=== PATIENT | female | born 1995 | race Caucasian/White ===

== ENCOUNTER 2018-08-14 10:19 | Outpatient (REF) | payer OTHER, SELFPAY | END 2018-08-14 10:39 | LOC: NCHCN 10:19 | PROVIDERS: Visit Provider Nurse Practitioner | DX: R30.0 Dysuria (principal) | CPT/HCPCS: 87077; 87086; 87186 ==

== ENCOUNTER 2018-09-10 12:58 | Outpatient (REF) | payer OTHER, SELFPAY ==
--- NOTE | 2018-09-10 09:30 | PAPFT_PTH ---
PATIENT: Leela West LOC: [facility] U#:[id number] AGE/SX: 23/F ROOM: RE09/10/[address]: Sameera Hays : 1995 BED: DIS: 09/10/2018 SPEC #: [id number] RECD: 09/10/18 13:17 STATUS: NINA REQ #: [id number] JESSICA: 09/10/18 09:[address]: Sameera Hays DEPT: [facility] Cytology RECD BY: Kristal Rousseau ENTERED: 09/10/18 13:17 SP TYPE: PAPFT OT DR: Unknown,Unknown Tissues: 1 - CX/ENDOCX FOR PAP SMEARS Procedures: PAP THIN PREP/UVM Screening Comments: [id number] (CHLAMYDIA/GC)
[2018-09-11 13:57] LABS: Chlamydia Result Negative; GC Result Negative; Specimen Description SEE COMMENTS
== END 2018-09-10 13:18 ==
LOC: NCHCN 12:58
PROVIDERS: Visit Provider Nurse Practitioner
DX: Z00.00 Encounter for general adult medical examination without abnormal findings (principal); Z11.3 Encounter for screening for infections with a predominantly sexual mode of transmission; Z12.4 Encounter for screening for malignant neoplasm of cervix; Z01.419 Encounter for gynecological examination (general) (routine) without abnormal findings
CPT/HCPCS: 87491; 87591; 88142

== ENCOUNTER 2018-09-24 02:28 | Emergency (ER) | payer OTHER, SELFPAY ==
[2018-09-24 02:30] VITALS: BP 130/72; PULSE 124; RESP 18; TEMP 36.6; O2SAT 98
--- NOTE | 2018-09-24 02:54 | ED.GENADUL_ITS ---
Discharge Plan Disposition Patient Disposition: HOME Discharge Details Chief Complaint: Allergic Clinical Impression: Acute allergic conjunctivitis of right eye, Cardiac murmur Primary Care Provider: Unknown,Unknown ED Provider: Marc Chowdary Home Meds and New Rx's Prescriptions: New prednisone 20 mg tablet 40 mg PO DAILY 5 Days Qty: 8 RF: 0 Continue acetaminophen [Tylenol Extra Strength] 500 MG tablet 500 mg PO PRN RF: 0 omeprazole [Prilosec] 20 MG capsule,delayed release(DR/EC) 20 mg PO PRN RF: 0 ibuprofen [Ibuprofen IB] 200 MG tablet 200 mg PO PRN Qty: 2 RF: 0 norgestimate-ethinyl estradiol [Sprintec (28)] 1 EACH tablet 1 tab-cap PO DAILY Qty: 3 RF: 0 Discontinued fexofenadine-pseudoephedrine [Mimi-D 24 Hour] 180-240 mg Tablet Extended Release 24 Hr 1 tab PO DAILY RF: 0 Discharge Instructions Instructions: Allergies (ED), Conjunctivitis (ED) Additional Instructions: Please follow-up with your primary care physician and an alteration specialist ( [facility] -- ). Take prednisone as prescribed. Use Mimi [id number], dose according to label. Use antihistamine eyedrops, dose according to label. Return to the ER for any worsening or new concerning symptoms. Please be sure to discuss your murmur with your primary care physician. Additional diagnostic testing may be necessary if this is a new murmur. Referrals: Sameera Hays [ NON-[facility] STAFF PHYSICIAN] - Medical Decision Making 23-year-old female here with allergic conjunctivitis right eye with significant chemosis. Plan to treat with Benadryl and prednisone. Patient has been suffering from intermittent allergies of the past few months. Unclear allergen. I think at this point it would benefit her to see an medical doctor nuclear medicine. I have provided contact information for [facility]. Plan to continue on his own burst for 5 days total. I advised that she take Mimi and use antihistamine eyedrops. Was also noted to have a murmur on exam today. Unclear patient has a history of murmur. She states that no one has told her she had a murmur in the past. I will have her follow-up with her primary care physician and if no record of prior murmur she may need an echocardiogram [facility] General Mode of arrival: ambulatory . Date/Time Provider Initiated Documentation: 09/24/18 02:53 . Limitations to Documentation: no limitations . Information obtained by: patient . HPI Narrative: 23-year-old female with history of severe allergic reaction in the past, unknown allergen, continues to have intermittent allergies over the past few months, here with acute swelling and itching of her right eye tonight. Inflammation is severe. No modifiers. No associated pain. No visual changes. No other rash, swelling of throat, shortness of breath or wheeze. Related Data Home Medications Medication Instructions Recorded Confirmed acetaminophen [Tylenol Extra 500 mg PO PRN 06/06/15 09/24/18 Strength] ibuprofen [Ibuprofen IB] 200 mg PO PRN #2 06/06/15 09/24/18 omeprazole [Prilosec] 20 mg PO PRN 06/06/15 09/24/18 norgestimate-ethinyl estradiol 1 tab-cap PO DAILY #3 pack 06/10/18 09/24/18 [Sprintec (28)] prednisone 40 mg PO DAILY 5 Days #8 tab 09/24/18 Previous Rx's Medication Instructions Recorded norgestimate-ethinyl estradiol 1 tab-cap PO DAILY #3 pack 06/10/18 [Sprintec (28)] prednisone 40 mg PO DAILY 5 Days #8 tab 09/24/18 Allergies Allergy/AdvReac Type Severity Reaction Status Date / Time No Known Allergies Allergy Unverified 04/10/18 20:55 General Stated Complaint: Allergic DANIEL: 3 Review of Systems Review of Systems All systems reviewed & are unremarkable except as noted in HPI and below Exam Const General: cooperative and no acute distress HENWI Head: normocephalic Mouth: moist mucous membranes Throat: posterior oropharynx normal Eyes Conjunctivae: conjunctival abnormality right conjunctival chemosis Sclera: normal sclerae Cornea: corneas normal Pupils: PERRL EOM: EOM intact bilaterally Neck Neck: trachea midline and supple Resp Auscultation: clear to auscultation bilaterally, no rales, no rhonchi and no wheezes Cardio Rate: regular rate and not tachycardic Rhythm: regular rhythm Heart Sounds: murmur systolic II/ and at the right sternal border Skin General skin exam: no rashes or lesions noted Neuro General: alert, awake, oriented x3 and tone normal Extrem General: no edema Psych Appearance: grossly normal Mental Status: mental status grossly normal Affect: anxious affect Course Vital Signs Temperature 36.6 C 09/24/18 02:30 Pulse 124 H 09/24/18 02:30 Respiratory Rate 18 09/24/18 02:30 Blood Pressure 130/72 09/24/18 02:30 Pulse Oximetry 98 09/24/18 02:30 Temperature 36.6 C 09/24/18 02:30 Temperature Source Skin 09/24/18 02:30 Pulse 124 H 09/24/18 02:30 Respiratory Rate 18 09/24/18 02:30 Respiratory Effort 09/24/18 02:38 Respiratory Pattern Irregular 09/24/18 02:38 Blood Pressure 130/72 09/24/18 02:30 Blood Pressure Position Sitting 09/24/18 02:30 Pulse Oximetry 98 09/24/18 02:30 Oxygen Delivery Method Room Air 09/24/18 02:30 Oxygen Flow Rate 0 09/24/18 02:30
[2018-09-24] MEDS: diphenhydrAMINE 25 MG CAP 50 MG PO (03:11)
[2018-09-24] MEDS: predniSONE 20 MG TAB 40 MG PO (03:12)
== END 2018-09-24 03:14 | disposition home or self-care (01) ==
LOC: ER 03:20
PROVIDERS: Emergency Provider Student in an Organized Health Care Education/Training Program; PCP Nurse Practitioner
DX: H10.45 Other chronic allergic conjunctivitis (principal); R01.1 Cardiac murmur, unspecified
CPT/HCPCS: 99283; J7512

== ENCOUNTER 2018-10-29 00:21 | Outpatient (CLI) | payer OTHER, SELFPAY ==
--- NOTE | 2018-10-29 10:30 | MERGE_ITS ---
*[facility]* *[facility]* [address] [place] [address] Date of study: 10/29/2018 Transthoracic Echocardiography M-mode, complete 2D, complete spectral Doppler, and color Doppler *STUDY CONCLUSIONS* Impressions: Normal study. Summary: 1. Left ventricle: The cavity size was normal. Wall thickness was normal. Systolic function was normal. The estimated ejection fraction was 60-65%. Wall motion was normal; there were no regional wall motion abnormalities. 2. Right ventricle: The cavity size was normal. Wall thickness was normal. Systolic function was normal. *PATIENT PRESENTATION* Height: 162.6cm ((64in) ) S/D Pressure: 113 / 71 Weight: 53.5kg ((117.8lb) ) BSA: 1.55m^2 Test start time: 10:35 AM. Test stop time: 11:30 AM. PERFORMING Unknown PERFORMING [facility] BUFFET WAITER/WAITRESS RT Brenda (R)(CT), [facility] ORDERING Sameera Hays REFERRING Sameera Hays *PROCEDURE DATA* Procedure information: The patient was identified by two identifiers. This study was interpreted by [facility]. Pertinent images and digital data are archived for permanent storage and are available for subsequent review. No prior study was available for comparison. Study status: Routine. Transthoracic echocardiography. M-mode, complete 2D, complete spectral Doppler, and color Doppler. A Transthoracic Echocardiogram was performed. Scanning was performed from the parasternal, apical, subcostal, and suprasternal notch acoustic windows. Images were obtained using an [id number] cardiac ultrasound machine. Study completion: The patient tolerated the procedure well. History: PMH: Cardiac murmur. *CARDIAC ANATOMY* Left ventricle: The cavity size was normal. Wall thickness was normal. Systolic function was normal. The estimated ejection fraction was 60-65%. Wall motion was normal; there were no regional wall motion abnormalities. Diastolic parameters were normal. Aortic valve: Trileaflet; normal thickness leaflets. Mobility was not restricted. Doppler: Transvalvular velocity was within the normal range. There was no stenosis. There was no significant regurgitation. VTI ratio of LVOT to aortic valve: 0.97. Valve area (VTI): 2.8cm^2. Indexed valve area (VTI): 1.8cm^2/m^2. Peak velocity ratio of LVOT to aortic valve: 0.91. Valve area (Vmax): 2.6cm^2. Indexed valve area (Vmax): 1.7cm^2/m^2. Mean velocity ratio of LVOT to aortic valve: 0.93. Valve area (Vmean): 2.7cm^2. Indexed valve area (Vmean): 1.7cm^2/m^2. Mean gradient (S): 4mm Hg. Peak gradient (S): 6.7mm Hg. Aorta: Aortic root: The aortic root was normal in size. Ascending aorta: The ascending aorta was normal in size. Mitral valve: Structurally normal valve. Mobility was not restricted. Doppler: Transvalvular velocity was within the normal range. There was no evidence for stenosis. There was no significant regurgitation. Valve area by pressure half-time: 5.8cm^2. Indexed valve area by pressure half-time: 3.7cm^2/m^2. Peak gradient (D): 5.8mm Hg. Left atrium: The atrium was normal in size. Right ventricle: The cavity size was normal. Wall thickness was normal. Systolic function was normal. Pulmonic valve: Structurally normal valve. Doppler: Transvalvular velocity was within the normal range. There was no evidence for stenosis. There was no significant regurgitation. Peak gradient (S): 5mm Hg. Tricuspid valve: Structurally normal valve. Doppler: Transvalvular velocity was within the normal range. There was no evidence for stenosis. There was no significant regurgitation. Pulmonary artery: Systolic pressure could not be accurately estimated. Right atrium: The atrium was normal in size. Pericardium: There was no pericardial effusion. Systemic veins: Inferior vena cava: Well visualized. The vessel was patent and normal in size. The respirophasic diameter changes were in the normal range (greater than or equal to 50%). Baseline ECG: Tachycardia. Measurements Left ventricle Value Reference LV ID, ED, PLAX 4.4 cm 3.5 - 6.0 LV ID, ES, PLAX 3.0 cm 2.1 - 4.0 LV PW thickness, ED, PLAX 0.7 cm LV end-diastolic volume, 1-p A2C 79 ml LV ejection fraction, 1-p A2C 66 % LV end-diastolic volume, 1-p A4C 71 ml LV ejection fraction, 1-p A4C 53 % LV e', lateral 0.2 m/sec LV E/e', lateral 6 LV e', medial 0.136 m/sec LV E/e', medial 9 LV e', average 0.168 m/sec LV E/e', average 7 Ventricular septum Value Reference IVS thickness, ED, PLAX 0.6 cm LVOT Value Reference LVOT ID, A-P 1.9 cm LVOT area 2.9 cm^2 LVOT peak velocity, S 1.17 m/sec LVOT mean velocity, S 0.88 m/sec LVOT VTI, S 21.4 cm LVOT peak gradient, S 5.5 mm Hg LVOT mean gradient, S 3.4 mm Hg Stroke volume (SV), LVOT DP 61 ml Stroke index (SV/bsa), LVOT DP 39 ml/m^2 Aortic valve Value Reference Aortic valve peak velocity, S 1.3 m/sec Aortic valve mean velocity, S 0.95 m/sec Aortic valve VTI, S 22.0 cm Aortic mean gradient, S 4 mm Hg Aortic peak gradient, S 6.7 mm Hg VTI ratio, LVOT/AV 0.97 Aortic valve area, VTI 2.8 cm^2 Velocity ratio, peak, LVOT/AV 0.91 Aortic valve area, peak velocity 2.6 cm^2 Velocity ratio, mean, LVOT/AV 0.93 Aortic valve area, mean velocity 2.7 cm^2 Aortic valve area/bsa, mean velocity 1.7 cm^2/m^2 Aorta Value Reference Aortic root ID, ED 2.5 cm Ascending aorta ID, A-P, S 2.6 cm Left atrium Value Reference LA ID, A-P, ES 1.9 cm LA ID/bsa, A-P 1.3 cm/m^2 <=2.2 LA area, ES, A4C 12.5 cm^2 8.8 - 23.4 LA area, ES, A2C 14 cm^2 LA volume/bsa, ES, 1-p A4C 22 ml/m^2 LA volume, ES, 2-p 34 ml LA volume/bsa, ES, 2-p 22 ml/m^2 LA/aortic root ratio 0.76 Mitral valve Value Reference Mitral E-wave peak velocity 1.2 m/sec Mitral A-wave peak velocity 0.84 m/sec Mitral deceleration time (L) 131 ms 150 - 230 Mitral pressure half-time 38 ms Mitral peak gradient, D 5.8 mm Hg Mitral E/A ratio, peak 1.44 Mitral valve area, PHT, DP 5.8 cm^2 Pulmonary veins Value Reference Pulmonary vein peak velocity, S 0.65 m/sec Pulmonary vein peak velocity, D 0.74 m/sec Pulmonary vein velocity ratio, peak, 0.88 S/D Tricuspid valve Value Reference Tricuspid regurg peak velocity 2.7 m/sec Tricuspid peak RV-RA gradient 28.1 mm Hg Right atrium Value Reference RA area, ES, A4C 8.7 cm^2 8.3 - 19.5 Pulmonic valve Value Reference Pulmonic peak gradient, S 5 mm Hg Legend: (L) and (H) elisa values outside specified reference range. I have personally reviewed the images and have reviewed and edited the reported findings. Electronically signed by Shorty Malone 10/29/2018 12:54
== END 2018-10-29 00:41 ==
PROVIDERS: PCP Nurse Practitioner; Visit Provider Nurse Practitioner
DX: R01.1 Cardiac murmur, unspecified (principal)
CPT/HCPCS: 93306

== ENCOUNTER 2021-12-28 08:36 | Outpatient (REF) | payer OTHER, SELFPAY ==
--- NOTE | 2021-12-28 08:15 | PAPFT_PTH ---
PATIENT: Leela West LOC: [facility]#:[id number] AGE/SX: 26/F ROOM: RE12/28/[address]: Carlie Sifuentes : 1995 BED: DIS: 12/28/2021 SPEC #: [id number] RECD: 12/28/21 16:39 STATUS: NINA REDanette #: [id number] JESSICA: 12/28/21 08:[address]: Carlie Sifuentes DEPT: [facility] Cytology RECD BY: Kristal Rousseau ENTERED: 12/28/21 16:39 SP TYPE: PAPFT OTHR DR: Sameera Hays Tissues: 1 - CX/ENDOCX FOR PAP SMEARS Procedures: PAP THIN PREP/UVM Screening Comments: [id number] (CHLAMYDIA/GC)
[2021-12-29 18:15] LABS: Chlamydia Result Negative (Negative); GC Result Negative (Negative)
== END 2021-12-28 08:37 | disposition home or self-care (01) ==
LOC: NCHCN 08:36
PROVIDERS: PCP Nurse Practitioner; Visit Provider Nurse Practitioner Family
DX: Z12.4 Encounter for screening for malignant neoplasm of cervix (principal); Z11.3 Encounter for screening for infections with a predominantly sexual mode of transmission
CPT/HCPCS: 87491; 87591; 88142

== ENCOUNTER 2022-12-09 16:18 | Emergency (ER) | payer SELFPAY ==
[2022-12-09] VITALS (12 sets, daily range): BP systolic 99–119; BP diastolic 67–80; PULSE 108–132; RESP 13–22; TEMP 37.1–37.6; O2SAT 97–100
[2022-12-09] MEDS: Normal Saline 1,000 ML 1000 ML IV ×2 (17:15→19:23)
[2022-12-09 17:26] LABS: Abs Immature Grans 0.06 10^3/uL (0.0-0.06); Absolute Lymphocyte Count 1.07 10^3/uL (1.2-3.4); Basophils % 0.3; Eosinophils % 0.6; HCT 47.9 % (36.0-46.0); HGB 15.7 g/dL (11.2-15.7); Immature Grans % 0.3; Lymphocytes % 5.3; MCH 29.6 pg (27.0-33.0); MCHC 32.8 % (32.0-36.0); MCV 90 fL (80-95); MPV 10.9 fL (8.0-11.0); Monocytes % 5.4; Neutrophils % 88.1; Platelet Count 313 10^3/uL (130-400); RBC 5.31 10^6/uL (3.93-5.22); RDW-SD 39.5 fL; WBC 20.18 10^3/uL (4.4-10.8)
[2022-12-09 17:30] LABS: Absolute Basophil Count 0.06 10^3/uL (0.0-0.2); Absolute Eosinophil Count 0.12 10^3/uL (0.0-0.7); Absolute Monocyte Count 1.09 10^3/uL (0.1-0.8); Absolute Neutrophil Count 17.78 10^3/uL (1.2-6.7)
[2022-12-09 17:39] LABS: Bilirubin Small (Negative); Blood Small (Negative); Clarity Sl Cloudy (Clear); Glucose Negative (Negative); Ketones Negative (Negative); Leukocyte Esterase Negative (Negative); Nitrite Negative (Negative); Specific Gravity >= 1.030 (1.005-1.025); Urobilinogen 0.2 EU/dL (Up TO 0.2); pH 5.5 (5-8)
[2022-12-09 17:57] LABS: ALT 34 U/L (14-59); AST 26 U/L (15-37); Albumin 4.8 g/dL (3.4-5.0); Alkaline Phosphatase 75 U/L (46-116); Anion Gap 12.8 mmol/L (3-11); BUN 15 mg/dL (7-18); Bilirubin, Total 0.3 mg/dL (0.2-1.0); CO2 26.2 mmol/L (21.0-32.0); CREATININE 0.9 mg/dL (0.55-1.02); Calcium 9.5 mg/dL (8.5-10.1); Chloride 101 mmol/L (98-107); Estimated GFR 90.42 (mL/min/1.73m2); Glucose 95 mg/dL (74-106); Lipase 105 U/L (73-393); Magnesium 1.9 mg/dL (1.8-2.4); Potassium 3.1 mmol/L (3.5-5.1); Sodium 140 mmol/L (136-145); Total Protein 10.1 g/dL (6.4-8.2)
[2022-12-09 18:01] LABS: Bacteria Moderate HPF (Negative); C & S Indicated? No/Sq. Contamination; Crystals Negative HPF (Negative); Epithelial Cells Many HPF (Negative); Mucus Heavy (Negative); Other Cells Rare Renal (Negative); RBC Negative HPF (0-2)
[2022-12-09] MEDS: Potassium Chloride 20 MEQ TABCR 40 MEQ PO (19:14)
--- NOTE | 2022-12-09 20:14 | W.ED.GENAD ---
Discharge Plan Disposition Patient Disposition: Home Condition: Stable Discharge Details Clinical Impression: Nausea and vomiting Primary Care Provider: Carlie Sifuentes ED Provider: Jackson Naik Home Meds and New Rx's Prescriptions: Continued acetaminophen [Tylenol Extra Strength] 500 MG tablet 500 mg PO PRN omeprazole [Prilosec] 20 MG capsule,delayed release(DR/EC) 20 mg PO PRN ibuprofen [Ibuprofen IB] 200 MG tablet 200 mg PO PRN Qty: 2 norgestimate-ethinyl estradiol [Sprintec (28)] 1 EACH tablet 1 tab-cap PO DAILY Qty: 3 0RF Discharge Instructions Additional Instructions: Continue to take medication as needed and slowly advance your diet as tolerated. Please stay well-hydrated and if you have any significant worsening of symptoms or are unable to take any food or fluids please return to the emergency department for reassessment. Otherwise follow-up with your primary care provider if not improving in the next week Stand Alone Forms: Work Release Referrals: Carlie Sifuentes [Primary Care Provider] - Discharge Data Discharge Date/Time-TO BE ENTERED AT DEPARTURE: 12/09/22 20:33 Medical Decision Making Patient presenting to the emergency department for chief complaint of nausea vomiting. Patient stated symptoms started with abrupt onset around 2:00 she states it was mostly liquid with slightly bile taste to emesis and has been persistent with no ability to intake p.o. fluids. Denies fever. Does state that approximately 2 hours prior to getting symptoms she did eat some raw cookie dough that was made with duck eggs. Patient denies any diarrhea vaginal or urinary symptoms. Physical exam shows no surgical abdominal findings, soft abdomen with normal active bowel sounds, no peritoneal findings. Patient is tachycardic otherwise stable vital signs. We will plan on checking labs and giving patient fluids pending results. We will also give antiemetics. Review of labs shows a significant leukocytosis that I feel secondary to acute vomiting, potassium slightly low at 3.1, anion gap of 12.8, lipase is normal at 105 LFTs are also all normal. Urinalysis shows patient is not , high specific gravity but no signs of infection and source looks contaminated. Patient refused fluid testing but did consent to antigen testing which was negative. We will give patient additional IV fluids and p.o. potassium given that she is feeling better. Patient refuses repeat CBC due to wanting to recheck for significant leukocytosis and wanted to assess improvement. At this time I do not feel that patient needs CT imaging but return and follow-up precautions were discussed at time of discharge. After discussion of diagnosis and plan of care patient has no further needs, questions, or concerns and states clear understanding to return to the emergency department for any worsening symptoms. I suspect acute foodborne illness versus viral. This documentation was generated using [employer] dictation system, please disregard any oddities of phrase or misspellings. HPI General Mode of arrival: ambulatory. Date/Time Provider Initiated Documentation: 12/09/22 16:29. Limitations to Documentation: no limitations. Information obtained by: patient and RN notes reviewed. History of Present Illness 27 year old F presents to the emergency department with the chief complaint of Nausea vomiting, described as moderate and severe, with intensity rated at 4. Quality is described as aching, and is localized to the abdomen. Patient reports no radiation. Patient started experiencing this hour(s) (2.5) and it has been constant. No relieving factors improve symptom(s), Eating worsens symptoms . Patient notes no other symptoms.. Patient did receive the following treatments prior to arrival, none Related Data Home Medications Medication Instructions Recorded Confirmed acetaminophen 500 mg tablet 500 mg PO PRN 06/06/15 12/09/22 (Tylenol Extra Strength) ibuprofen 200 mg tablet (Ibuprofen 200 mg PO PRN ##2 06/06/15 12/09/22 IB) omeprazole 20 mg capsule,delayed 20 mg PO PRN 06/06/15 12/09/22 release (Prilosec) norgestimate 0.25 mg-ethinyl 1 tab-cap PO DAILY ##3 18 12/09/22 estradiol 35 mcg tablet (Sprintec (28)) Previous Rx's Medication Instructions Recorded norgestimate 0.25 mg-ethinyl 1 tab-cap PO DAILY ##3 06/10/18 estradiol 35 mcg tablet (Sprintec (28)) Allergies Allergy/AdvReac Type Severity Reaction Status Date / Time No Known Allergies Allergy Unverified 12/09/22 16:27 General Stated Complaint: Nausea/Vomit/Diar DANIEL: 3 Review of Systems Constitutional Constitutional: Denies chills, Denies fever(s) and Reports poor appetite Cardiovascular Cardiovascular: Denies chest pain and Denies dyspnea Respiratory Respiratory: Denies cough and Denies dyspnea Gastrointestinal Gastrointestinal: Reports as per HPI, Reports abdominal pain, Denies melena, Denies change in bowel habits, Denies constipation, Denies diarrhea, Reports nausea and Reports vomiting Genitourinary Genitourinary: Denies hematuria and Denies dysuria Integumentary/Breasts Skin/Breast: Denies rash PFSH All Active Problems Nausea and vomiting (Acute) Postnasal drip (Chronic) Hypertrophy of nasal turbinates (Chronic) Routine medical exam (Acute 02/10/14) Contraception (Acute 06/06/15) Acne (Acute 11/13/12) Family History Other Diabetes MGM, MGF Personal history of malignant neoplasm maternal-breast Myocardial infarction MGF Asthma maternal cousins Social History Smoking/Tobacco Use Status: Never Smoking risk assessment performed?: Yes Alcohol Intake: current Alcohol Intake frequency: holidays/special occasions only Drug use: Never Substance use type: does not use Do you feel safe in your relationship?: Yes Exam Const General: cooperative and anxious Orientation: alert, awake and oriented x3 Resp Effort & Inspection: normal respiratory effort and able to speak in complete sentences Auscultation: clear to auscultation bilaterally Cardio Rate: tachycardic Rhythm: regular rhythm Heart Sounds: S1 normal and S2 normal GI Palpation: soft, no hepatosplenomegaly, not firm, no guarding, no masses, no pulsatile masses, not rigid, no splenomegaly and nontender Auscultation: normal bowel sounds Back/Spine/Pelvis Back: no CVA tenderness Neuro General: patient alert, patient awake, patient oriented x3, gait normal and moves all extremities Course Vital Signs Vital signs: Vital Signs Temperature 37.6 C H 12/09/22 16:23 Pulse 132 H 12/09/22 16:23 Respiratory Rate 18 12/09/22 16:23 Blood Pressure 114/75 12/09/22 16:23 Pulse Oximetry 100 12/09/22 16:23 Temperature 37.1 C 12/09/22 19:16 Pulse 121 H 12/09/22 19:00 Respiratory Rate 18 12/09/22 19:00 Respiratory Effort Non-Labored 12/09/22 17:38 Blood Pressure 111/73 12/09/22 19:00 Blood Pressure Position Sitting 12/09/22 16:23 Pulse Oximetry 98 12/09/22 19:00 Oxygen Delivery Method Room Air 12/09/22 19:00 Oxygen Flow Rate 0 12/09/22 19:00 Pain Level 6 12/09/22 16:23 Lab/Test Results Lab/Test Results: Laboratory Tests Range/Units 12/09/22 12/09/22 12/09/22 17:02 17:15 17:15 WBC (4.4-10.8) 10^3/uL 20.18 H RBC (3.93-5.22) 10^6/uL 5.31 H Hgb (11.2-15.7) g/dL 15.7 Hct (36.0-46.0) % 47.9 H MCV (80-95) fL 90 MCH (27.0-33.0) pg 29.6 MCHC (32.0-36.0) % 32.8 RDW (11.7-14.6) % 12.0 Plt Count (130-400) 10^3/uL 313 MPV (8.0-11.0) fL 10.9 Immature Gran % 0.3 Neutrophils % 88.1 Lymphocytes % 5.3 Monocytes % 5.4 Eosinophils % 0.6 Basophils % 0.3 Nucleated RBC % (0.0-0.3) % 0.0 Absolute Neutrophils (1.2-6.7) 10^3/uL 17.78 H Absolute Lymphocytes (1.2-3.4) 10^3/uL 1.07 L Absolute Monocytes (0.1-0.8) 10^3/uL 1.09 H Absolute Eosinophils (0.0-0.7) 10^3/uL 0.12 Absolute Basophils (0.0-0.2) 10^3/uL 0.06 Sodium (136-145) mmol/L 140 Potassium (3.5-5.1) mmol/L 3.1 L Chloride (98-107) mmol/L 101 Carbon Dioxide (21.0-32.0) mmol/L 26.2 Anion Gap (3-11) mmol/L 12.8 H BUN (7-18) mg/dL 15 Creatinine (0.55-1.02) mg/dL 0.9 Est GFR (CKD-EPI 2020) (mL/min/1.73m2) 90.42 Glucose (74-106) mg/dL 95 Calcium (8.5-10.1) mg/dL 9.5 Magnesium (1.8-2.4) mg/dL 1.9 Total Bilirubin (0.2-1.0) mg/dL 0.3 AST (15-37) U/L 26 ALT (14-59) U/L 34 Alkaline Phosphatase (46-116) U/L 75 Total Protein (6.4-8.2) g/dL 10.1 H Albumin (3.4-5.0) g/dL 4.8 Lipase (73-393) U/L 105 Urine Color (Yellow) Yellow Urine Clarity (Clear) Sl Cloudy Urine pH (5-8) 5.5 Ur Specific [place] (1.005-1.025) >= 1.030 H Urine Protein (Negative) mg/dL 100 H Urine Ketones (Negative) mg/dL Negative Urine Blood (Negative) Small H Urine Nitrite (Negative) Negative Urine Bilirubin (Negative) Small H Urine Urobilinogen (Up TO 0.2) EU/dL 0.2 Ur Leukocyte Esterase (Negative) Negative Urine RBC (0-2) HPF Negative Urine WBC (0-5) HPF 5-10 Ur Epithelial Cells (Negative) HPF Many Urine Crystals (Negative) HPF Negative Urine Bacteria (Negative) HPF Moderate Urine Mucus (Negative) Heavy Urine Other (Negative) Rare Renal Ur Culture Indicated? No/Sq. Contamination Urine Glucose (Negative) mg/dL Negative POC- Test(urine) Negative
[2022-12-09] MEDS: Ondansetron O.D.T. 4 MG TABEF, 3 TABS/BTL PO (20:36)
== END 2022-12-09 20:33 | disposition home or self-care (01) ==
PROVIDERS: Emergency Provider Nurse Practitioner Family; PCP Nurse Practitioner Family
DX: R11.2 Nausea with vomiting, unspecified (principal); D72.829 Elevated white blood cell count, unspecified; Z20.822 Contact with and (suspected) exposure to COVID-19
CPT/HCPCS: 36415; 80053; 81025; 83690; 87637; 96361; 96365; 96375; 99284; 81003; 81015; 83735; 85025

== ENCOUNTER 2023-10-21 21:31 | Outpatient (CLI) | payer MEDICAID, SELFPAY ==
[2023-10-21 09:21] LABS: HCG Quant, Pregnancy 21 mIU/mL (1-3)
== END 2023-10-21 21:32 | disposition home or self-care (01) ==
LOC: LBO 21:32
PROVIDERS: PCP Nurse Practitioner Family; Visit Provider Obstetrics & Gynecology
DX: O20.9 Hemorrhage in early pregnancy, unspecified (principal)
CPT/HCPCS: 36415; 86850; 86900; 86901; 84702

== ENCOUNTER 2023-12-02 16:51 | Outpatient (CLI) | payer MEDICAID, SELFPAY | END 2023-12-02 16:52 | disposition home or self-care (01) | LOC: LBO 16:52 | PROVIDERS: PCP Nurse Practitioner Family; Visit Provider Obstetrics & Gynecology | DX: N92.6 Irregular menstruation, unspecified (principal) | CPT/HCPCS: 36415; 86850; 86900; 86901; 84702 ==

== ENCOUNTER 2024-01-03 02:37 | Outpatient (CLI) | payer MEDICAID, SELFPAY ==
[2024-01-03 14:56] LABS: Panorama Kit Sent via Fed Ex
[2024-01-03 15:03] LABS: Abs Immature Grans 0.06 10^3/uL (0.0-0.06); Absolute Basophil Count 0.05 10^3/uL (0.0-0.2); Absolute Lymphocyte Count 2.22 10^3/uL (1.2-3.4); Absolute Monocyte Count 0.54 10^3/uL (0.1-0.8); Absolute Neutrophil Count 7.07 10^3/uL (1.2-6.7); Basophils % 0.5; HGB 12.6 g/dL (11.2-15.7); Immature Grans % 0.6; Lymphocytes % 22.1; MCH 30.1 pg (27.0-33.0); MCHC 34.1 % (32.0-36.0); MCV 89 fL (80-95); MPV 10.5 fL (8.0-11.0); Monocytes % 5.4; Neutrophils % 70.4; Platelet Count 256 10^3/uL (130-400); RBC 4.18 10^6/uL (3.93-5.22); RDW 12.9 % (11.7-14.6); RDW-SD 41.6 fL; WBC 10.04 10^3/uL (4.4-10.8)
[2024-01-04 11:32] LABS: Hepatitis C Ab w Rflx HCV PCR Negative (Negative)
[2024-01-04 11:40] LABS: HIV-1/2 Ag & Ab Screen Negative (Negative)
[2024-01-06 09:48] LABS: Hepatitis B Surface Ag Negative (Negative)
[2024-01-06 09:54] LABS: Varicella IgG Antibody Positive (See Note)
[2024-01-06 10:09] LABS: HSV Type 1 Ab, IgG Positive (Negative); HSV Type 2 Ab, IgG Negative (Negative)
[2024-01-06 10:22] LABS: Rubella IgG Ab (UVM) Positive (See Note)
[2024-01-07 12:55] LABS: Syphilis IgG w/Reflex Nonreactive (Nonreactive)
[2024-01-13 14:05] LABS: Result Summary NEGATIVE; Specimen WB Whole Blood
== END 2024-01-03 02:38 | disposition home or self-care (01) ==
LOC: LBO 02:37
PROVIDERS: PCP Nurse Practitioner Family; Visit Provider Advanced Practice Midwife
DX: Z34.91 Encounter for supervision of normal pregnancy, unspecified, first trimester (principal); Z86.19 Personal history of other infectious and parasitic diseases
CPT/HCPCS: 36415; 81220; 81222; 86787; 86803; 86850; 86900; 86901; 87340; 87389; 85025; 86695; 86696; 86762; 86780

== ENCOUNTER 2024-01-03 14:23 | Outpatient (REF) | payer MEDICAID, SELFPAY | END 2024-01-03 14:24 | disposition home or self-care (01) | LOC: LBN 14:23 | PROVIDERS: PCP Nurse Practitioner Family; Visit Provider Advanced Practice Midwife | DX: Z34.91 Encounter for supervision of normal pregnancy, unspecified, first trimester (principal); Z3A.11 11 weeks gestation of pregnancy; R82.998 Other abnormal findings in urine | CPT/HCPCS: 87086 ==

== ENCOUNTER 2024-01-31 11:12 | Outpatient (REF) | payer MEDICAID, SELFPAY ==
[2024-02-01 14:18] LABS: Chlamydia Result Negative (Negative); GC Result Negative (Negative)
== END 2024-01-31 11:13 | disposition home or self-care (01) ==
LOC: LBN 11:12
PROVIDERS: PCP Nurse Practitioner Family; Visit Provider Obstetrics & Gynecology
DX: Z34.92 Encounter for supervision of normal pregnancy, unspecified, second trimester (principal); Z11.3 Encounter for screening for infections with a predominantly sexual mode of transmission; Z3A.15 15 weeks gestation of pregnancy
CPT/HCPCS: 87491; 87591

== ENCOUNTER → 2024-02-27 04:03 | Outpatient (CLI) | payer MEDICAID, SELFPAY ==
--- NOTE | 2024-02-27 08:00 | DI.US_ITS ---
Exam(s) US OB 2-3 TRIMESTER EXAM: US OB 2-3 TRIMESTER CLINICAL HISTORY: anatomy scan,z34.90. TECHNIQUE: Transabdominal obstetrical ultrasound performed. COMPARISON: US POCUS EXAM from 12/20/2023 FINDINGS: Number of fetuses: One. position: Variable Placental grade: 1 Placental location: Anterior, low lying. The tip of the placenta measures 2.5 cm from the internal o s. BIOMETRIC DATA: BPD: 44mm = 19+ 2 weeks HC: 163mm = 19+ 0 weeks AC: 133mm = 18+ 6 weeks FL: 28mm = 18+ 4 weeks Cisterna Magna: 4.2 mm Cerebellum: 1.9 cm EFW: 255 grms 39% Composite Age: 19+ 0 weeks EDC by US: 23 July 2024 Heart Rate: 165BPM Amniotic fluid : Amount of fluid is within normal limits. ANATOMICAL SURVEY: Four-chambered heart: Unremarkable. LVOT: Unremarkable. RVOT: Not seen Left-sided stomach: Unremarkable. urinary bladder: Unremarkable. Bilateral kidneys: Unremarkable. Three-vessel cord: Unremarkable. Cord insertion: Unremarkable. Posterior fossa:Unremarkable. ventricles: Unremarkable. nose: Unremarkable. lips: Unremarkable. palate: Unremarkable. spine: Unremarkable. Two arms and two legs: Unremarkable. IMPRESSION: 1. Single live intrauterine with composite age of 19+ 0 weeks. 2. Normal anatomic survey. RVOT was not well seen. Patient scheduled to return 05 March 2024 for additional imaging. 3. Low lying placenta. DATA REPOSITORY:
== END ==
PROVIDERS: PCP Nurse Practitioner Family; Visit Provider Obstetrics & Gynecology
DX: Z34.92 Encounter for supervision of normal pregnancy, unspecified, second trimester (principal)
CPT/HCPCS: 76805

== ENCOUNTER → 2024-03-05 04:59 | Outpatient (CLI) | payer MEDICAID, SELFPAY ==
--- NOTE | 2024-03-05 | DI.US_ITS ---
Exam(s) US OB F/U FACIAL/LVOT/RVOT EXAM: US OB F/U FACIAL/LVOT/RVOT CLINICAL HISTORY: F/U RVOT AND FACE. TECHNIQUE: Transabdominal obstetrical ultrasound was performed. COMPARISON: Prior ANA MARÍA study of 02/27/2024 was reviewed. Apparently right ventricular outflow tract was not able to be adequately imaged at that time. FINDINGS: There is a single viable intrauterine gestation with cardiac activity identified-BPM not record ed but cardiac movement seen on the cine acquisitions. The fetus is presently in cephalic position . Amniotic fluid: There is a normal amount of amniotic fluid.. Placental location: The placenta is anterior grade 1,slightly low lying should be checked later in pr egnancy 3rd trimester anatomy: Adequate images of the right and left ventricular outflow tracts were obtained on tom ahn's study. Also obtain satisfactory facial profile image. Also obtain satisfactory imaging of the posterior fossa and cord plexus. IMPRESSION:: Viable intrauterine gestation, as described above. Congenital anomaly survey now compl eted Follow-up study in 3rd trimester recommended for determination of placenta location relative to the i nternal cervical os. DATA REPOSITORY:
== END ==
PROVIDERS: PCP Nurse Practitioner Family; Visit Provider Obstetrics & Gynecology
DX: Z34.82 Encounter for supervision of other normal pregnancy, second trimester (principal)
CPT/HCPCS: 76815

== ENCOUNTER 2024-05-04 05:58 | Outpatient (CLI) | payer MEDICAID, SELFPAY ==
[2024-05-04 15:23] LABS: Abs Immature Grans 0.18 10^3/uL (0.0-0.06); Absolute Basophil Count 0.04 10^3/uL (0.0-0.2); Absolute Eosinophil Count 0.17 10^3/uL (0.0-0.7); Absolute Monocyte Count 0.71 10^3/uL (0.1-0.8); Basophils % 0.3 %; Eosinophils % 1.4 %; Immature Grans % 1.5 %; Lymphocytes % 19.7 %; MCH 31.1 pg (27.0-33.0); MCHC 33.3 % (32.0-36.0); MCV 93 fL (80-95); MPV 10.5 fL (8.0-11.0); Monocytes % 5.8 %; Neutrophils % 71.3 %; Platelet Count 204 10^3/uL (130-400); RBC 3.86 10^6/uL (3.93-5.22); RDW 13.4 % (11.7-14.6); RDW-SD 45.9 fL; WBC 12.26 10^3/uL (4.4-10.8)
[2024-05-04 15:24] LABS: Absolute Lymphocyte Count 2.42 10^3/uL (1.2-3.4); Absolute Neutrophil Count 8.74 10^3/uL (1.2-6.7)
[2024-05-04 15:32] LABS: Glucose,1 Hr (Glucola) 112 mg/dL (80-140)
== END 2024-05-04 05:59 | disposition home or self-care (01) ==
LOC: LBO 05:58
PROVIDERS: PCP Nurse Practitioner Family; Visit Provider Obstetrics & Gynecology
DX: Z34.92 Encounter for supervision of normal pregnancy, unspecified, second trimester (principal); Z3A.28 28 weeks gestation of pregnancy
CPT/HCPCS: 36415; 82950; 85025

== ENCOUNTER → 2024-05-07 00:23 | Outpatient (CLI) | payer MEDICAID, SELFPAY ==
--- NOTE | 2024-05-07 08:53 | DI.US_ITS ---
Exam(s) US OB F/U FACIAL/LVOT/RVOT EXAM: US OB F/U FACIAL/LVOT/RVOT CLINICAL HISTORY: surveillance of previously low lying placenta O44.42 Z34.90. TECHNIQUE: Transabdominal obstetrical ultrasound performed. COMPARISON: US US OB F/U FACIAL/LVOT/RVOT from 03/05/2024 FINDINGS: Number of fetuses: 1 position: CEPHALIC Placental location: There is a grade 1 anterior placenta. The placental tip is 7 cm from the interna l os. No evidence of previa. Heart Rate: 154bpm IMPRESSION: 1. Single live intrauterine gestation as above. 2. There is no evidence of a low-lying placenta. The placental tip is 7 cm from the internal os on t jennifer's examination. DATA REPOSITORY:
== END ==
PROVIDERS: PCP Nurse Practitioner Family; Visit Provider Obstetrics & Gynecology Gynecology
DX: O44.42 Low lying placenta NOS or without hemorrhage, second trimester (principal); Z3A.28 28 weeks gestation of pregnancy
CPT/HCPCS: 76815

== ENCOUNTER 2024-06-29 13:48 | Outpatient (REF) | payer MEDICAID, SELFPAY | END 2024-06-29 13:49 | disposition home or self-care (01) | LOC: LBN 13:48 | PROVIDERS: PCP Nurse Practitioner Family; Visit Provider Obstetrics & Gynecology | DX: Z34.93 Encounter for supervision of normal pregnancy, unspecified, third trimester (principal); Z3A.36 36 weeks gestation of pregnancy; Z36.85 Encounter for antenatal screening for Streptococcus B | CPT/HCPCS: 87081 ==

== ENCOUNTER 2024-07-24 11:15 | Outpatient (CLI) | payer MEDICAID, SELFPAY ==
[2024-07-24 15:00] VITALS: BP 121/76; PULSE 93; TEMP 36.9
--- NOTE | 2024-08-12 15:10 | W.OBNST ---
Date of service: 08/12/24 Time of Service: 15:11 NST Evaluation Reason for NST Reasons for Nonstress Test: POSTDATES Gestational Age Gestational Age in Weeks and Days: 40 Weeks and 5Days Test and Monitor Explained Test/Monitor Explained: Test Explained, Monitor Explained and Patient Verbalized Understanding Vital Signs Blood Pressure: 121/76 Pulse: 93 Temperature: 98.4 F Urine Results Urine Protein: Negative Urine Ketones: Negative Urine Glucose: Negative Urine Blood: Negative NST Information Time on Monitor: 14:52 Date off Monitor: 07/24/24 Time off Monitor: 15:28 NST Interventions: PO Hydration and Notify Provider Contraction Frequency: Occasional NST Evaluation Patient States Movement: Present FHR Baseline: 140 Variability: Moderate 6-25 bpm Accelerations: 15x15 Decelerations: None NST Results: Reactive Note Ultrasound Done: N/A. NST Note Note: Reactive NST. Pt will continue with routine care. NST Reviewed and Verified by: Denise Kirby
[2024-08-12 15:11] VITALS: BP 121/76; PULSE 93; TEMP 36.9
== END 2024-07-24 15:31 ==
LOC: BCD 11:16 → OBS 14:56
PROVIDERS: PCP Nurse Practitioner Family; Visit Provider Obstetrics & Gynecology Gynecology
DX: O48.0 Post-term pregnancy (principal); Z3A.40 40 weeks gestation of pregnancy
CPT/HCPCS: 59025

== ENCOUNTER 2024-07-29 02:43 | Inpatient (IN) | payer MEDICAID, SELFPAY ==
[2024-07-29] VITALS (95 sets, daily range): BP systolic 97–137; BP diastolic 53–89; PULSE 64–131; RESP 18; TEMP 36.2–37.1; O2SAT 98–100; BMI 34.4
--- NOTE | 2024-07-29 03:21 | HPE_ITS ---
Date of service: 07/29/24 Time of Service: 03:21 Assessment and Plan Assessment and plan (1) : Status: Acute Assessment and plan: at 40 weeks and 5 days with spontaneous rupture of membranes and irregular contractions. Will monitor for the next few hours, and if no onset of spontaneous labor, augmentation with Pitocin. Anticipate vaginal . All questions answered. OB-HPI Labor/Delivery History of Present Illness Reason for Visit: Spontaneous rupture of membranes at 40 weeks and 5 Chief Complaint: Suspected Rupture of Membranes , Associated Signs and Symptoms of Suspected ROM: Gush of clear fluid, grossly ruptured. DARIA Calculator Estimated Delivery Date Method Current WG Current Estimate 07/24/24 Ultrasound #1 40w 5d Comments: Patient had spontaneous rupture of membranes at approximately 230 this morning. Baby's been moving and active. No vaginal bleeding. Occasional irregular contractions. History of Present Expected Delivery Route/Plan MD kenji Corado (has four yo) BB Specific Issues/Plan 1. HSV I genital culture in 2017 at [facility] - no hx of oral HSV or sexual contact at that time - 1a. Serum HSV I/II ordered to confirm-=pos. HSV I - confidential, please do not discuss with others present. 2. cfDNA low risk x5 male, CF screen negative 3. Low lying placenta on morphology u/s. Repeat ordered for ~ 28w. Pt is aware. 4. Pt is nervous about needles and her PCP uses lidocaine before blood draws. Narrative: Patient is a 29-year-old 2 para 0 at 40 weeks and 5 days she had not had a period since her previous miscarriage though extrapolated would have been 10/19/2023. She presented to the center grossly ruptured. heart rate is in the 150s with moderate variability appropriate accelerations and contractions approximately every 4 minutes which palpate mild to moderate. She has category 1 heart rate tracing. Her to this point has been essentially uncomplicated. Group B strep culture performed 06/29/2025 is negative. She did have a previous low-lying placenta which was resolved. Review of Systems All systems reviewed & are unremarkable except as noted in HPI and below Constitutional Constitutional: Reports as per HPI ENT Ears, Nose, Mouth, and Throat: Reports as per HPI Cardiovascular Cardiovascular: Reports system reviewed and no additional complaints, except as documented Respiratory Respiratory: Reports system reviewed and no additional complaints, except as documented Gastrointestinal Gastrointestinal: Reports as per HPI Genitourinary Comments: Spontaneous rupture membranes, occasional irregular contractions. Fetus is active. Patient denies prodrome or vulvar or vaginal lesions Musculoskeletal Musculoskeletal: Reports system reviewed and no additional complaints, except as documented Neurologic Neurologic: Reports system reviewed and no additional complaints, except as documented Psychiatric Psychiatric: Reports system reviewed and no additional complaints, except as documented PFSH All Active Problems (Updated 07/29/24 @ 03:28 by Kayleen Hogan DO) Routine cultures positive for HSV1 (Acute) Asthma (Chronic) (Acute) Postnasal drip (Chronic) Hypertrophy of nasal turbinates (Chronic) Medical History (Updated 07/29/24 @ 03:28 by Kayleen Hogan DO) Migraine with aura History of herpes genitalis Tested pos. for HSV type 1 before she was sexually active. Family History (Updated 01/03/24 @ 13:47 by Kacy Scruggs CNM) Other Diabetes MGM, MGF Personal history of malignant neoplasm great GM maternal-breast Myocardial infarction MGF Asthma maternal cousins Mother Diabetes Father Lung anomaly hole in lung which caused collapsed lung Social History Smoking/Tobacco Use Status: Never Smoking risk assessment performed?: Yes Alcohol Intake: current Alcohol Intake frequency: holidays/special occasions only Drug use: Never Substance use type: does not use Do you feel safe in your relationship?: Yes History History 2 Para Hx # Term Pregnancies Multiple births Hx # Pregnancies Ectopic pregnancies AB induced Hx Number of Living Children 0 AB spontaneous 1 Meds Allergies and Home Medications Allergies Allergy/AdvReac Type Severity Reaction Status Date / Time environmental Allergy Other (See Uncoded 07/21/24 15:08 Comment) Home Medications ?Medication ?Instructions ?Recorded ?Confirmed ?Type acetaminophen 500 mg tablet 500 mg PO PRN 06/06/15 07/08/24 History (Tylenol Extra Strength) omeprazole 20 mg capsule,delayed 20 mg PO PRN 06/06/15 07/08/24 History release (Prilosec) fexofenadine 180 mg tablet 180 mg PO DAILY 12/20/23 07/08/24 History (Mimi Allergy) vitamins no.119-iron tab PO 01/31/24 07/08/24 History fumarate 29 mg-folic acid 1 mg tablet magnesium oxide 400 mg PO DAILY 02/27/24 07/08/24 History valacyclovir 500 mg tablet 500 mg PO DAILY #60 tabs 06/15/24 07/08/24 Rx (Valtrex) Exam Physical Exam Vital signs: Temp Pulse Resp BP 98.3 F 94 H 18 113/69 07/29/24 02:55 07/29/24 02:55 07/29/24 02:55 07/29/24 02:55 Vital Signs Reviewed: Yes Constitutional Constitutional: no acute distress Detailed Labor and Delivery Exam Dilation: 2 Effacement (%): 60 station: -2 Cervix position: anterior Consistency: soft Kohli Score: Cervical Points Exam 0 1 2 3 Dilation Closed 1-2cm 3-4 cm 5-6cm Effacement 0-30% 40-50% 60-70% 80% Consistency Firm Medium Soft Station -3 -2 -1,0 +1,+2 Position Posterior Mid Anterior KOHLI Score(Cervical Ripeness Score): 8 Amniotic Membrane Status: Ruptured Rupture Method: Spontaneous Amniotic Fluid: Clear Pooling: Positive Contraction Frequency(min): 4 Contraction Duration(sec): 60 Contraction Intensity: Mild/Moderate Fetus A Heart Rate Baseline: 150 Monitor Accelerations: Present Monitor Decelerations: None Variability: Moderate (6-25 BPM) Presentation: Cephalic Categories: Category I Date of Membrane Rupture: 07/29/24 Time of Membrane Rupture: 01:30 HEENT Exam HEENT Exam: Normal Respiratory Exam Respiratory Exam: Normal Cardiovascular Exam Cardiovascular Exam: Normal Abdominal Exam Abdominal Exam: Normal Exam Exam: Normal Extremities Exam Extremities Exam: Normal Psychiatric Exam Psychiatric Exam: Normal Risk Assessment Risk for Shoulder Dystocia Historical/Initial OB: NEGATIVE FOR: Pelvic Abnormality, Pre- BMI>30, Previous Shoulder Dystocia or Previous Macrosomia Delivery Plan @ 40 wks: KJ 07/29/2024 Risk for Pre-Eclampsia Yes, if one or more: NEGATIVE FOR: Hx Pre-E/Gest HTN, Chronic HTN, Multiple Gestation, Pre-gestational DM, Renal Disease, Systemic Lupus or APA Syndrome Yes, if 2 or more: POSITIVE FOR: Nulliparity; NEGATIVE FOR: Age>= 35 yrs, >10yr btwn pregnancies, BMI>30, ethinicty, Mother/Sister w/ Pre-E or Previous IUGR Risk for Post- Hemorrhage At Risk?: No Counseled re: Active Management: Yes Date/Initials: LORENE 07/29/2024 Risks Reviewed Risks Reviewed Upon Admission: Yes
[2024-07-29 03:43] LABS: HCT 38.2 % (36.0-46.0); HGB 12.8 g/dL (11.2-15.7); MCH 31.8 pg (27.0-33.0); MCHC 33.5 % (32.0-36.0); MCV 95 fL (80-95); MPV 11.9 fL (8.0-11.0); Platelet Count 144 10^3/uL (130-400); RBC 4.02 10^6/uL (3.93-5.22); RDW-SD 48.2 fL; WBC 9.08 10^3/uL (4.4-10.8)
--- NOTE | 2024-07-29 06:37 | W.PM.OBNL1 ---
Date of service: 07/29/24 Time of Service: 06:38 Informed Consent Informed Consent: Induction of Labor Assessment and Plan Assessment and plan (1) : Status: Acute Assessment and plan: Term with spontaneous rupture of membranes at 40 weeks and 5 days. Will ambulate and reassess contraction pattern. If no significant contractions or regular labor, will augment with Pitocin. (2) Normal labor: Status: Acute Objective Abnormal lab results 07/29/24 Range/Units 03:37 MPV 11.9 H (8.0-11.0) fL Temp Pulse Resp BP 98.3 F 94 H 18 113/69 07/29/24 05:38 07/29/24 05:38 07/29/24 05:38 07/29/24 05:38 Laboratory Results WBC 9.08 10^3/uL (4.4-10.8) 07/29/24 03:37 RBC 4.02 10^6/uL (3.93-5.22) 07/29/24 03:37 Hgb 12.8 g/dL (11.2-15.7) 07/29/24 03:37 Hct 38.2 % (36.0-46.0) 07/29/24 03:37 MCV 95 fL (80-95) 07/29/24 03:37 MCH 31.8 pg (27.0-33.0) 07/29/24 03:37 MCHC 33.5 % (32.0-36.0) 07/29/24 03:37 RDW 14.0 % (11.7-14.6) 07/29/24 03:37 Plt Count 144 10^3/uL (130-400) 07/29/24 03:37 MPV 11.9 fL (8.0-11.0) H 07/29/24 03:37 ABO/Rh A Positive 07/29/24 03:37 Antibody Screen NEGATIVE 07/29/24 03:37 Subjective Interval history since last seen: Patient seen, has rested comfortably. Increase in contraction intensity. Not currently in active labor. At this point, I would recommend ambulation, eat a light breakfast. Will place her back on the monitor to evaluate her contraction pattern. If no significant improvement and not an active labor, will augment with Pitocin. Informed consent obtained Results Hemoglobin/Hematocrit: Hgb 12.8 g/dL (11.2-15.7) 07/29/24 03:37 Hct 38.2 % (36.0-46.0) 07/29/24 03:37 Abnormal Lab Findings: Abnormal Labs 07/29/24 03:37 MPV 11.9 H
[2024-07-29] MEDS: Oxytocin/Normal Saline 30 UNIT/500 ML BAG 2 UNITS IV (10:56)
--- NOTE | 2024-07-29 12:41 | W.PM.OBNL1 ---
Date of service: 07/29/24 Time of Service: 12:42 Informed Consent Informed Consent: Induction of Labor and Risk,Benefits,Alternatives Discussed Contractions Monitor Mode: External Contraction Frequency(min): 5-6 Contraction Duration(sec): 50 Intensity: Mild Fetus A Monitor: External (US) Heart Rate Baseline: 140 Presentation: Cephalic Variability: Moderate (6-25 BPM) Categories: Category I FHR Rhythm: Regular Characteristics: Normal Accelerations: 15 X 15 Decelerations: None Assessment and Plan Assessment and plan (1) Normal labor: Status: Acute Assessment and plan: Patient presented with spontaneous rupture membranes. Her cervix has remained 2 cm. The plan is oxytocin augmentation of labor. She is agreeable to the plan. Objective Abnormal lab results 07/29/24 Range/Units 03:37 MPV 11.9 H (8.0-11.0) fL Temp Pulse Resp BP 97.3 F L 87 18 119/71 07/29/24 12:37 07/29/24 10:32 07/29/24 05:38 07/29/24 10:32 Laboratory Results WBC 9.08 10^3/uL (4.4-10.8) 07/29/24 03:37 RBC 4.02 10^6/uL (3.93-5.22) 07/29/24 03:37 Hgb 12.8 g/dL (11.2-15.7) 07/29/24 03:37 Hct 38.2 % (36.0-46.0) 07/29/24 03:37 MCV 95 fL (80-95) 07/29/24 03:37 MCH 31.8 pg (27.0-33.0) 07/29/24 03:37 MCHC 33.5 % (32.0-36.0) 07/29/24 03:37 RDW 14.0 % (11.7-14.6) 07/29/24 03:37 Plt Count 144 10^3/uL (130-400) 07/29/24 03:37 MPV 11.9 fL (8.0-11.0) H 07/29/24 03:37 ABO/Rh A Positive 07/29/24 03:37 Antibody Screen NEGATIVE 07/29/24 03:37 Vital Signs Reviewed: Yes Objective Narrative Objective Narrative: Patient reports increased discomfort with contractions. She has been encouraged to ambulate. Pitocin currently at 6 milliunits/min. Subjective Interval history since last seen: Feeling more uncomfortable with contractions. Results Hemoglobin/Hematocrit: Hgb 12.8 g/dL (11.2-15.7) 07/29/24 03:37 Hct 38.2 % (36.0-46.0) 07/29/24 03:37 Abnormal Lab Findings: Abnormal Labs 07/29/24 03:37 MPV 11.9 H
--- NOTE | 2024-07-29 14:34 | ANES.PREOP_ITS ---
General Info Date of Service Date Performed: 07/29/24 Height: 5 ft 2 in Weight: 85.275 kg Body Mass Index (BMI): 34.4 Meds Allergies and Home Medications Allergies Allergy/AdvReac Type Severity Reaction Status Date / Time environmental Allergy Other (See Uncoded 07/21/24 15:08 Comment) Home Medication ?Medication ?Instructions ?Recorded acetaminophen 500 mg tablet 500 mg PO PRN 06/06/15 (Tylenol Extra Strength) omeprazole 20 mg capsule,delayed 20 mg PO PRN 06/06/15 release (Prilosec) fexofenadine 180 mg tablet 180 mg PO DAILY 12/20/23 (Mimi Allergy) vitamins no.119-iron 1 tab PO DAILY 01/31/24 fumarate 29 mg-folic acid 1 mg tablet magnesium oxide 400 mg PO DAILY 02/27/24 valacyclovir 500 mg tablet 500 mg PO DAILY #60 tabs 06/15/24 (Valtrex) Current Visit Medications: Current Medications Generic Name Dose Route Start Last Admin Trade Name Freq PRN Reason Stop Dose Admin Oxytocin/Sodium Chloride 30 unit in 500 mls @ 2 mls/hr 07/29/24 06:45 07/29/24 14:15 Pitocin/Normal Saline IV 12 milliunits/min INFUSION PASCUAL 12 mls/hr Titration Protocol 2 MILLIUNITS/MIN IV Miscellaneous Supplies 1 each 07/29/24 03:30 Iv Access IV DIRECTED PASCUAL Sodium Chloride 0 ml 07/29/24 03:19 Normal Saline Flush 10 Ml Syr IVP PRN PRN Sodium Chloride 0 ml 07/29/24 08:30 07/29/24 13:09 Normal Saline Flush 10 Ml Syr IVP Not Given BID PASCUAL Sodium Chloride 0 ml 07/29/24 03:19 Normal Saline 10 Ml Vial IJ DIRECTED PRN PFSH Active Problems Active Problems: Problem Status Onset Code Normal labor Acute O80, Z37.9 Routine cultures positive for HSV1 Acute B00.9 Asthma Chronic J45.909 Acute Z34.90 Postnasal drip Chronic R09.82 Hypertrophy of nasal turbinates Chronic J34.3 Medical History Medical History (Updated 07/29/24 @ 06:39 by Kayleen Hogan DO) Migraine with aura History of herpes genitalis Tested pos. for HSV type 1 before she was sexually active. Tobacco Smoking/Tobacco Use Status: Never Alcohol Alcohol Intake: current Alcohol intake frequency: holidays/special occasions only Substance Use Substance use: Never Substance use type: does not use Prental History History 2 2 Para 0 Hx # Term Pregnancies Multiple births Hx # Pregnancies Ectopic pregnancies AB induced Hx Number of Living Children 0 AB spontaneous 1 Vital Signs and Lab Results Vital Signs Most Recent Vital Signs in EMR: Most Recent Vital Signs Temp Pulse Resp BP 36.3 C L 81 18 118/62 07/29/24 12:37 07/29/24 14:10 07/29/24 05:38 07/29/24 14:10 Lab Results 07/29/24 03:37 Blood Type / Crossmatch: 2 Antibody Screen NEGATIVE 07/29/24 Complete Blood Count: 2 White Blood Count 9.08 10^3/uL (4.4-10.8) 07/29/24 03:37 Red Blood Count 4.02 10^6/uL (3.93-5.22) 07/29/24 03:37 Hemoglobin 12.8 g/dL (11.2-15.7) 07/29/24 03:37 Hematocrit 38.2 % (36.0-46.0) 07/29/24 03:37 Platelet Count 144 10^3/uL (130-400) 07/29/24 03:37 Complete Metabolic Panel: 2 No Data to Display Liver Function Panel: 2 No Data to Display Coagulation Panel: 2 No Data to Display Cardiac Panel: 2 No Data to Display Arterial Blood Gas: 2 No Data to Display Venous Blood Gas: 2 No Data to Display Pancreas Panel: 2 No Data to Display Thyroid Panel: 2 No Data to Display Infectious Disease: 2 No Data to Display Blood Cultures: 2 No Data to Display Toxicology Panel: 2 No Data to Display Panel: 2 No Data to Display Imaging and Studies Imaging and Studies Study information below may be from another EMR and interpreted by another provider. Please see original notes in EMR for more complete details. Echocardiogram Summary: Date of study: 10/29/2018 Transthoracic Echocardiography M-mode, complete 2D, complete spectral Doppler, and color Doppler *STUDY CONCLUSIONS* Impressions: Normal study. Summary: 1. Left ventricle: The cavity size was normal. Wall thickness was normal. Systolic function was normal. The estimated ejection fraction was 60-65%. Wall motion was normal; there were no regional wall motion abnormalities. 2. Right ventricle: The cavity size was normal. Wall thickness was normal. Systolic function was normal. Anesthesia Assessment and Plan Anesthesia History Personal History: No History of General Anesthesia Family History: No Family History of Anesthesia Complications Exercise Tolerance Exercise Tolerance: Metabolic Equivalents>4 Pertinent Negatives Pertinent Negatives: No Symptoms of GERD, No Major Cardiovascular Symptoms or Complaints and No History of CVA/TIA Cardiac & Pulmonary Exam Cardiac Exam: Normal S1/S2 Heart Sounds Pulmonary Exam: Clear Bilateral Breath Sounds Implantable Cardiac Device Does patient have a Pacemaker or an ICD?: No Airway Exam Known Difficult Airway: No Mallampati Class: 2 Mouth Opening: Normal (> 3cm) Thyromental Distance: Greater than 3 cm Neck Range of Motion: Full ROM Neck Circumference: Normal Teeth Condition: Normal Dentition ASA Classification ASA Score: ASA 2 Emergency Case?: No NPO Status NPO Status: Full Stomach Status Status: Confirmed Anesthesia Plan Resuscitation Status: Full Code Anesthesia Technique: Labor Epidural Airway Planned: Natural Airway Monitors Used: Standard Monitors
--- NOTE | 2024-07-29 14:41 | W.PM.OBNL1 ---
Date of service: 07/29/24 Time of Service: 14:41 Informed Consent Informed Consent: Induction of Labor and Risk,Benefits,Alternatives Discussed Pelvic Exam Dilation: 3 Effacement (%): 75 station: -1 Cervix Position: mid Consistency: soft Vaginal Exam Presentation: Cephalic Contractions Monitor Mode: External Contraction Frequency(min): q4min Contraction Duration(sec): 50 Intensity: Mild/Moderate Fetus A Monitor: External (US) Heart Rate Baseline: 150 Presentation: Cephalic Variability: Moderate (6-25 BPM) Categories: Category I FHR Rhythm: Regular Characteristics: Normal Accelerations: 15 X 15 Decelerations: None Assessment and Plan Assessment and plan (1) Normal labor: Status: Acute Assessment and plan: Oxytocin infusion currently being titrated up. Will offer labor analgesia. Objective Abnormal lab results 07/29/24 Range/Units 03:37 MPV 11.9 H (8.0-11.0) fL Temp Pulse Resp BP 97.3 F L 81 18 118/62 07/29/24 12:37 07/29/24 14:10 07/29/24 05:38 07/29/24 14:10 Laboratory Results WBC 9.08 10^3/uL (4.4-10.8) 07/29/24 03:37 RBC 4.02 10^6/uL (3.93-5.22) 07/29/24 03:37 Hgb 12.8 g/dL (11.2-15.7) 07/29/24 03:37 Hct 38.2 % (36.0-46.0) 07/29/24 03:37 MCV 95 fL (80-95) 07/29/24 03:37 MCH 31.8 pg (27.0-33.0) 07/29/24 03:37 MCHC 33.5 % (32.0-36.0) 07/29/24 03:37 RDW 14.0 % (11.7-14.6) 07/29/24 03:37 Plt Count 144 10^3/uL (130-400) 07/29/24 03:37 MPV 11.9 fL (8.0-11.0) H 07/29/24 03:37 ABO/Rh A Positive 07/29/24 03:37 Antibody Screen NEGATIVE 07/29/24 03:37 Vital Signs Reviewed: Yes Objective Narrative Objective Narrative: Pt increasingly uncomfortable. Using nitrous oxide for labor analgesia. I have encouraged pt to proceed with epidural. PROFESSOR OF EXERCISE SCIENCE contacted. Subjective Patient Reports: New Complaints Interval history since last seen: increasing discomfort - contractions radiating to back. Results Hemoglobin/Hematocrit: Hgb 12.8 g/dL (11.2-15.7) 07/29/24 03:37 Hct 38.2 % (36.0-46.0) 07/29/24 03:37 Abnormal Lab Findings: Abnormal Labs 07/29/24 03:37 MPV 11.9 H
--- NOTE | 2024-07-29 15:29 | ANES.NEUR_ITS ---
Epidural/Spinal Catheter Date Performed: 07/29/24 Procedure Start: 15:01 Procedure Stop: 15:34 Requesting Provider: Denise Kirby Procedure Location: Obstetrics Reason Performed: Labor Epidural Standard Monitors Applied: Blood Pressure, SpO2 and See EMR for corresponding vital signs Patient Position: Sitting Sedation Given (Indicate Dose Given): No Sedation given Patient Mental Status: Awake Sterility: Hand Hygiene, Surgical Cap, Surgical Mask, Sterile Gloves, Sterile Drape/Sheet and Chlorhexidine Procedure Location: L3-L4 Interspace Epidural Needle: Tuohy 18 Gauge Needle Length: 3.5 Inch Needle Approach: Midline Epidural Procedure: Skin Prepped, Sterile Drape Placed, 1% Lidocaine to skin and subcutaneous tissue with 25G needle, Tuohy Needle placed, DIONNE to Saline Used, Epidural Catheter Placed, Negative Heme, Negative CSF Flow and Tuohy Needle Removed Catheter Placed?: Catheter Placed Test Dose (Indicate Dose Given): 3ml 1.5% Lidocaine with 1:200K Epinephrine Given and Negative Test Dose Loss of Resistance Depth (cm): 6 Catheter depth at skin (cm): 12 Dressing: Sorbaview Dressing Placed, Mastisol Used and Dressing reinforced with Tape Epidural Provi dawson Bolus (Indicate Dose Given): Total bolus dose given in 3-5 ml divided doses and Total Ropivacaine 0.1% with Fentanyl 2mcg/ml Given from pump. (ml) Dose:: 10ml Additives (Indicate Dose Given ): None Infusion Medication: Medication Infusion Began Medication Infusion: Ropivacaine 0.1% with Fentanyl 2mcg/ml Maintenance Infusion Rate (ml/hour): 10 PCEA Bolus Dose (ml): 5 Post Procedure Pain score (0-10): 0 Block Level: N/A Paresthesia: None Ultrasound: Not Used Number of Attempts (See previous attempts in note section): 1 Procedure Tolerated: No Complications and Patient tolerated well Procedure Outcome: Successful Procedure Comment:: Epidural placed with negative test dose. Educated on PCEA use and all questions answered. Pt. comfortable. Performed By: Samson Singh
[2024-07-29] MEDS: FentaNYL/ROPIvacaine 2 mcg/ml and 0.1% 200 ML CADD Cassette EP (15:30)
--- NOTE | 2024-07-29 17:39 | W.PM.OBNL1 ---
Date of service: 07/29/24 Time of Service: 17:39 Informed Consent Informed Consent: Induction of Labor and Risk,Benefits,Alternatives Discussed Pelvic Exam Dilation: 4 Effacement (%): 90 station: -1 Cervix Position: mid Consistency: soft Vaginal Exam Presentation: Cephalic Contractions Monitor Mode: External (Currently Oxytocin infusion is 18mu/min) Contraction Frequency(min): 4min Contraction Duration(sec): 50 seconds. Intensity: Mild/Moderate Fetus A Monitor: External (US) Heart Rate Baseline: 145 Presentation: Cephalic Variability: Moderate (6-25 BPM) Categories: Category I FHR Rhythm: Regular Characteristics: Normal Accelerations: 15 X 15 Decelerations: None Assessment and Plan Assessment and plan (1) Normal labor: Status: Acute Assessment and plan: Pt continues to receive Oxytocin for labor augmentation. Epidural placed after Nitrous Oxide briefly used. Comfortable. IUPC placed. Pt declined FSE. Objective Abnormal lab results 07/29/24 Range/Units 03:37 MPV 11.9 H (8.0-11.0) fL Temp Pulse Resp BP Pulse Ox 97.3 F L 131 H 18 118/65 99 07/29/24 16:13 07/29/24 17:22 07/29/24 05:38 07/29/24 17:18 07/29/24 17:17 Laboratory Results WBC 9.08 10^3/uL (4.4-10.8) 07/29/24 03:37 RBC 4.02 10^6/uL (3.93-5.22) 07/29/24 03:37 Hgb 12.8 g/dL (11.2-15.7) 07/29/24 03:37 Hct 38.2 % (36.0-46.0) 07/29/24 03:37 MCV 95 fL (80-95) 07/29/24 03:37 MCH 31.8 pg (27.0-33.0) 07/29/24 03:37 MCHC 33.5 % (32.0-36.0) 07/29/24 03:37 RDW 14.0 % (11.7-14.6) 07/29/24 03:37 Plt Count 144 10^3/uL (130-400) 07/29/24 03:37 MPV 11.9 fL (8.0-11.0) H 07/29/24 03:37 ABO/Rh A Positive 07/29/24 03:37 Antibody Screen NEGATIVE 07/29/24 03:37 Vital Signs Reviewed: Yes Subjective Patient Reports: No new Complaints Interval history since last seen: s/p epidural placed for labor analgesia. No pain from contractions. Reports feeling anxious, reports hx of anxiety. Interventions Pain Management Interventions: Epidural Epidural Placed by:: Samson Singh and Nitrous Oxide , used it briefly to assist with discomfort from uterine contractions. ./ Augmentation , Pitocin rate (mU/min): 18 will continue to advance Oxytocin concentration now the IUPC is in place . Results Hemoglobin/Hematocrit: Hgb 12.8 g/dL (11.2-15.7) 07/29/24 03:37 Hct 38.2 % (36.0-46.0) 07/29/24 03:37 Abnormal Lab Findings: Abnormal Labs 07/29/24 03:37 MPV 11.9 H
[2024-07-29] MEDS: Lactated Ringers 1,000 ML 125 ML IV (19:02)
[2024-07-29] MEDS: diphenhydrAMINE 25 MG CAP PO (19:47)
--- NOTE | 2024-07-29 23:05 | W.PM.OBNL1 ---
Date of service: 07/29/24 Time of Service: 23:05 Informed Consent Informed Consent: Induction of Labor and Risk,Benefits,Alternatives Discussed Pelvic Exam Dilation: 10 Effacement (%): 100 station: +1 Contractions Monitor Mode: Internal Contraction Frequency(min): 4 Contraction Duration(sec): 40 Intensity: Moderate Fetus A Monitor: External (US) Heart Rate Baseline: 140 Presentation: Cephalic Variability: Moderate (6-25 BPM) Categories: Category II FHR Rhythm: Regular Characteristics: Normal Accelerations: 15 X 15 Decelerations: Early and Late Recurrence: Intermittent Amniotic Membrane Status: Ruptured Objective Abnormal lab results 07/29/24 Range/Units 03:37 MPV 11.9 H (8.0-11.0) fL Temp Pulse Resp BP Pulse Ox 98.8 F 106 H 18 116/55 L 99 07/29/24 22:17 07/29/24 22:48 07/29/24 22:17 07/29/24 22:48 07/29/24 17:17 Laboratory Results WBC 9.08 10^3/uL (4.4-10.8) 07/29/24 03:37 RBC 4.02 10^6/uL (3.93-5.22) 07/29/24 03:37 Hgb 12.8 g/dL (11.2-15.7) 07/29/24 03:37 Hct 38.2 % (36.0-46.0) 07/29/24 03:37 MCV 95 fL (80-95) 07/29/24 03:37 MCH 31.8 pg (27.0-33.0) 07/29/24 03:37 MCHC 33.5 % (32.0-36.0) 07/29/24 03:37 RDW 14.0 % (11.7-14.6) 07/29/24 03:37 Plt Count 144 10^3/uL (130-400) 07/29/24 03:37 MPV 11.9 fL (8.0-11.0) H 07/29/24 03:37 ABO/Rh A Positive 07/29/24 03:37 Antibody Screen NEGATIVE 07/29/24 03:37 Vital Signs Reviewed: Yes Objective Narrative Objective Narrative: Patient completely dilated. Will begin maternal expulsive efforts. Anticipate vaginal delivery. Subjective Patient Reports: No new Complaints Results Hemoglobin/Hematocrit: Hgb 12.8 g/dL (11.2-15.7) 07/29/24 03:37 Hct 38.2 % (36.0-46.0) 07/29/24 03:37 Abnormal Lab Findings: Abnormal Labs 07/29/24 03:37 MPV 11.9 H
[2024-07-30] VITALS (11 sets, daily range): BP systolic 97–130; BP diastolic 56–91; PULSE 89–119; RESP 16–18; TEMP 36.6–37.1; O2SAT 97–99
[2024-07-30] MEDS: Acetaminophen 325 MG TAB 650 MG PO ×4 (02:40→21:25)
[2024-07-30] MEDS: Ibuprofen 600 MG TAB PO ×4 (02:40→21:25)
--- NOTE | 2024-07-30 08:04 | W.ANESPOSTOP ---
Postoperative Evaluation Date, Time and Location Date Performed: 07/30/24 Time Performed: 08:04 Patient Location: Obstetrics Vital Signs Most Recent Imported Vital Signs: Most Recent Vital Signs Temp Pulse Resp BP Pulse Ox 36.7 C 119 H 18 108/82 99 07/30/24 05:00 07/30/24 05:00 07/30/24 05:00 07/30/24 05:00 07/29/24 17:17 Pain Score Most Recent Pain Score: Most Recent Pain Score Pain Level 4 07/30/24 02:40 Assessment Mental Status: Awake (Alert & Oriented to Patient Baseline) Airway and Respiratory Function: Patent airway with normal (patient baseline) respiratory exam Cardiovascular Function: Hemodynamically Stable Hydration Status: Adequately Hydrated Nausea & Vomiting: No Nausea or Vomiting Pain: Pain is tolerable per patient Peripheral Nerve Block: Patient did not receive a nerve block
[2024-07-30] MEDS: Docusate Sodium 100 MG CAP PO (08:36)
[2024-07-30] MEDS: Normal Saline Flush 10 ML SYR IVP (08:37)
--- NOTE | 2024-07-30 10:00 | W.OBDELIVERY ---
Date of service: 07/30/24 Time of Service: 10:00 OB Labor/ Delivery Information Baby A Delivery Delivery Method: Spontaneaous Presentation: Vertex Cephalic Position: N/A Breech Position: N/A Cord Description-Baby A: 3 Vessels, Nuchal Cord (x2) and True Knot (x1) Cord Description Comment: 3 vessels Amniotic Fluid: Clear Estimated Blood Loss: 100 Delivery Outcome: Liveborn Transferred: Remains with Mother Providers Doctor: Denise Kirby Operator/Assistant Foreman: Usha [facility] Aide: Amada Brewster Labor/Delivery Information Number of Babies in Womb: 1 Steroids Given: None Reason Steroids Not Administered: N/A Group Beta Strep: Negative Antibiotics Administered: No Rubella Status: Immune Blood Type: A+ Varicella Immunity: Immune Medication in Delivery: epidural Born En Route: No Maternal Complications: None Shoulder Dystocia: No Stages of Labor Onset of Labor Date: 07/29/24 Onset of Labor Time: 01:30 Complete Dilatation Date: 07/29/24 Complete Dilatation Time: 22:57 Labor - Stage 1 Duration: 21 hours and 27 minutes ROM Baby A: 07/29/24 ROM Baby A: 01:30 ROM Total Time- Baby A: [id number] Infant Delivery Date-Baby A: 07/30/24 Delivery Time-Baby A: 01:19 Labor Stage 2 Duration: 2 hours and 22 minutes Placenta Delivery Date-Baby A: 07/30/24 Placenta Delivery Time-Baby A: 01:32 Labor-Stage 3 Duration: 13 minutes Total Length of Labor-Baby A: 23 hours and 49 minutes Placenta Cultured: No Placenta Status: Delivered Baby A Infant Gender: Male (Judah) Gestational Status: Term (39-41.6 wks) Gestational Age in Weeks/Days: 40 Weeks and 6 Days weight: 7 lb 7.402 oz Length-Baby A: 18.9 in Head Circumference-Baby A: 12.99 in Score-1 Minute Interval(Baby A) Heart Rate-1 minute: 100 BPM or Greater Respiratory Effort- 1 minute: Spontaneous/Strong Cry Muscle Tone-1 minute: Active Movement Reflex Response-1 minute: Prompt Response Color-1 minute: Bluish Hands or Feet Total Score-1 minute: 9 Score-5 Minute Interval(Baby A) Heart Rate- 5 minute: 100 BPM or Greater Respiratory Effort-5 minute: Spontaneous/Strong Cry Muscle Tone-5 minute: Active Movement Reflex Response-5 minute: Prompt Response Color-5 minute: Bluish Hands or Feet Total Score- 5 minute: 9 Shoulder Dystocia Delivery Times Date of Delivery of Head: 07/30/24 Time of Delivery of the Head: 01:17 Head to Body Delivery Interval(minutes): 0119 Verify No Fundal Pressure Applied Fundal Pressure: No Pressure Applied
[2024-07-31] MEDS: Dibucaine 1% 28 GM TUBE TP (00:24)
[2024-07-31] MEDS: Ibuprofen 600 MG TAB PO ×2 (04:51→15:14)
[2024-07-31] MEDS: Acetaminophen 325 MG TAB 650 MG PO ×2 (04:51→15:14)
[2024-07-31 08:00] VITALS: BP 114/73; PULSE 94; RESP 12; TEMP 37.1
--- NOTE | 2024-07-31 09:15 | W.PM.OBDISCH ---
Date of service: 07/31/24 Time of Service: 09:17 DS: Diagnosis Discharge Diagnosis (1) Normal labor: Status: Deleted (2) Vaginal delivery: Status: Acute Discharge Plan Disposition Patient Disposition: Home Condition: Improving Discharge Details Reason For Visit: Spontaneous rupture of membranes at 40 weeks and 5 Admit Date/Time: 07/29/24 02:43 Admit Provider: Kayleen Hogan Attending Provider: Kayleen Hogan Primary Care Provider: Carlie Sifuentes Hospital Course Hospital Course: Pt is a 29yo G2 now P2 female who presented to with SROM at 40w6d EGA on the morning of 07/29/24. Oxytocin augmentation was initiated and pt progressed in labor with an epidural for labor analgesia. She had a of a viable male who will be named Judah weighing 7lb7oz in the [facility] hours on 07/30/24. Pt was discharged to home of PPD1 successfully pending her infant's voiding spontaneously. She will be seen in the C in one week. OTC Ibuprofen and Acetaminophen for postpostum discomfort.. Home Meds and New Rx's Prescriptions: No Action PNV 119-iron fum-folic acid 29 mg iron- 1 mg tablet 1 tab PO DAILY valacyclovir [Valtrex] 500 mg tablet 500 mg PO DAILY Qty: 60 1RF fexofenadine [Mimi Allergy] 180 mg tablet 180 mg PO DAILY magnesium oxide 400 mg magnesium tablet 400 mg PO DAILY Patient Comments: takes 2 tabs daily acetaminophen [Tylenol Extra Strength] 500 MG tablet 500 mg PO PRN omeprazole [Prilosec] 20 MG capsule,delayed release(DR/EC) 20 mg PO PRN Discharge Instructions Stand Alone Forms: Instructions, Post Vaginal Deliver Activity:: Activity as Tolerated Equipment/Supplies:: No Equipment Needed Diet:: As Tolerated OB:DS Summary Summary Vaginal Delivery Method: Spontaneaous Laceration Description: Perineal (2nd degree with usual repair.) Contraception Discussed Contraception Discussed: Yes Contraceptive Plan: Control Pill/Patch (Norethindrone 0.35mg while ), [place] Infant Gender-Baby A: Male (Judah) weight: 7 lb 7.402 oz Status at Discharge Functional status at discharge: independent ambulation Overall status at discharge: patient is progressing back to baseline Mental Status: mental status grossly normal Speech and Movement: speech and movement normal Mood: congruent mood Affect: normal affect Quality:SDOH Health Related Social Needs: No Data to Display Exam Physical Exam Vital signs: Temp Pulse Resp BP Pulse Ox 98.2 F 105 H 17 115/82 99 07/30/24 20:30 07/30/24 20:30 07/30/24 20:30 07/30/24 20:30 07/30/24 20:30 Vital Signs Reviewed: Yes Constitutional Constitutional: no acute distress Neck Exam Neck Exam: Normal Respiratory Exam Respiratory Exam: Normal Cardiovascular Exam Cardiovascular Exam: Normal Abdominal Exam Comments: non-tender Fundal Exam Fundus: Below Umbilicus and Firm Rectal Exam Rectal Exam: Not Done Extremities Exam Extremity Exam: Normal Back/Spine/Pelvis Exam Back Exam: Not Done Skin Exam Skin Exam: Normal Neurological Exam Neurological Exam: Normal Psychiatric Exam Psychiatric Exam: Normal PFSH All Active Problems (Updated 07/30/24 @ 10:07 by Denise Kirby MD) Vaginal delivery (Acute) 07/30/24. 'Judah' [id number] Routine cultures positive for HSV1 (Acute) Asthma (Chronic) (Acute) Postnasal drip (Chronic) Hypertrophy of nasal turbinates (Chronic) Medical History (Updated 07/30/24 @ 10:07 by Denise Kirby MD) Migraine with aura History of herpes genitalis Tested pos. for HSV type 1 before she was sexually active. Family History (Updated 01/03/24 @ 13:47 by Kacy Scruggs CNM) Other Diabetes MGM, MGF Personal history of malignant neoplasm great GM maternal-breast Myocardial infarction MGF Asthma maternal cousins Mother Diabetes Father Lung anomaly hole in lung which caused collapsed lung Social History (Updated 07/31/24 @ 09:31 by Denise Kirby MD) Smoking/Tobacco Use Status: Never Smoking risk assessment performed?: Yes Alcohol Intake: current Alcohol Intake frequency: holidays/special occasions only Drug use: Never Substance use type: does not use Household members: significant other, children and other Details: SO: Srikanth. S: Judah and stepdaughter Housing: house Number of Children: 1 Do you feel safe at home: Yes Do you feel safe in your relationship?: Yes History History 2 Para 1 Hx # Term Pregnancies 1 Multiple births Hx # Pregnancies Ectopic pregnancies AB induced Hx Number of Living Children 01 AB spontaneous 1 Past Pregnancies Del. Date GA/Weeks # Preg Succ Route Wgt Sex Labor Lgth Anesthesia Location Prov Complic 07/30/24 41 No Yes vaginal Male aoc Delivery Date: 07/30/24 Last Updated by: MD MARIA C Noel. Judah DS: Data Vitals/I&O Vitals and I&O: Vital Signs Temperature 98.2 F 07/30/24 20:30 Temperature Source Oral 07/30/24 20:30 Pulse 105 H 07/30/24 20:30 Pulse Rhythm Regular 07/30/24 20:30 Respiratory Rate 17 07/30/24 20:30 Respiratory Depth Normal 07/30/24 20:30 Blood Pressure 115/82 07/30/24 20:30 Blood Pressure Mean 93 07/30/24 20:30 Pulse Oximetry 99 07/30/24 20:30 Oxygen Delivery Method Room Air 07/29/24 05:38 Oxygen Flow Rate 0 07/29/24 05:38 Pain Level 2 07/30/24 16:30 Intake & Output 07/30/24 07/30/24 07/31/24 11:59 23:59 11:59 Output Total 1300 / 1300 Balance -1300 / -1300 Output: Urine 1300 / 1300 Other: Urine Color Yellow Yellow Urine Appearance Clear Urine Odor None Voiding Methods Toilet
[2024-07-31 16:23] VITALS: BP 108/70; PULSE 111; RESP 18; TEMP 37.1; O2SAT 98
== END 2024-07-31 17:45 | disposition home or self-care (01) | DRG 806 ==
PROVIDERS: Admitting Provider Obstetrics & Gynecology; PCP Nurse Practitioner Family; Visit Provider Obstetrics & Gynecology
DX: O48.0 Post-term pregnancy (principal); O98.52 Other viral diseases complicating childbirth; Z37.0 Single live birth; Z3A.40 40 weeks gestation of pregnancy; O69.2XX0 Labor and delivery complicated by other cord entanglement, with compression, not applicable or unspecified; B00.9 Herpesviral infection, unspecified; O69.81X0 Labor and delivery complicated by cord around neck, without compression, not applicable or unspecified
CPT/HCPCS: 85027; 86850; 86900; 86901

== ENCOUNTER 2025-10-19 13:27 | Outpatient (CLI) | payer MEDICAID, SELFPAY ==
[2025-10-19 13:44] LABS: HCG Quant, Pregnancy 28 mIU/mL (1.5-4.2)
== END 2025-10-19 13:28 | disposition home or self-care (01) ==
LOC: LBO 13:27
PROVIDERS: PCP Nurse Practitioner Family; Visit Provider Obstetrics & Gynecology
DX: N91.0 Primary amenorrhea (principal)
CPT/HCPCS: 36415; 84702

== ENCOUNTER 2025-10-21 12:41 | Outpatient (CLI) | payer MEDICAID, SELFPAY ==
--- NOTE | 2025-10-21 12:42 | NUR.NOTE ---
Nursing Note: Pt arrived ambulatory per Dr Hogan for HCG lab draw. Outpatient lab closed today so clinic account made and lab ordered.
[2025-10-21 13:16] LABS: HCG Quant, Pregnancy 21 mIU/mL (1.5-4.2)
== END 2025-10-21 12:50 ==
LOC: BCD 12:41
PROVIDERS: PCP Nurse Practitioner Family; Visit Provider Obstetrics & Gynecology
DX: O03.9 Complete or unspecified spontaneous abortion without complication (principal)
CPT/HCPCS: 84702

== ENCOUNTER 2025-10-25 14:02 | Outpatient (CLI) | payer MEDICAID, SELFPAY ==
[2025-10-25 14:34] LABS: HCG Quant, Pregnancy 3 mIU/mL (1.5-4.2)
== END 2025-10-25 14:03 | disposition home or self-care (01) ==
LOC: LBO 14:06
PROVIDERS: PCP Nurse Practitioner Family; Visit Provider Obstetrics & Gynecology
DX: Z34.91 Encounter for supervision of normal pregnancy, unspecified, first trimester (principal)
CPT/HCPCS: 36415; 84702